=== PATIENT | female | born 1990 | race Caucasian/White ===

== ENCOUNTER 2017-10-26 12:40 | Emergency (ER) | payer OTHER | END 2017-10-26 16:05 | disposition home or self-care (01) | LOC: M ED 12:40 | DX: G43.909 Migraine, unspecified, not intractable, without status migrainosus (principal); Z87.820 Personal history of traumatic brain injury; M54.9 Dorsalgia, unspecified | CPT/HCPCS: 70450 ==

== ENCOUNTER 2018-04-24 12:13 | Emergency (ER) | payer OTHER ==
[2018-04-24 14:07] LABS: BASO # 0.1 10^3/uL (0.0-0.2); BASO % 0.5 % (0.0-1.0); EOS # 0.1 10^3/uL (0.0-0.50); EOS % 1.1 % (0.0-3.0); HEMATOCRIT 38.8 % (36.0-47.0); HEMOGLOBIN 12.6 g/dl (12.0-15.5); LYMPH # 3.1 10^3/uL (1.5-6.5); LYMPH % 24.2 % (24.0-44.0); MEAN CORPUSCULAR HEMOGLOBIN 28.1 pg (27.0-33.0); MEAN CORPUSCULAR HGB CONC 32.5 g/dl (32.0-36.5); MEAN CORPUSCULAR VOLUME 86.4 fl (80.0-96.0); MONO # 1.3 10^3/uL (0.0-0.8); MONO % 9.9 % (0.0-5.0); NEUTROPHILS # 8.1 10^3/uL (1.8-7.7); NEUTROPHILS % 63.3 % (36.0-66.0); PLATELET COUNT, AUTOMATED 303 10^3/uL (150-450); RED BLOOD COUNT 4.49 10^6/uL (4.00-5.40); RED CELL DISTRIBUTION WIDTH 12.4 % (11.5-14.5); WHITE BLOOD COUNT 12.7 10^3/uL (4.0-10.0)
[2018-04-24 14:35] LABS: ANION GAP 10 MEQ/L (8-16); BLOOD UREA NITROGEN 11 MG/DL (7-18); CALCIUM LEVEL 8.7 MG/DL (8.5-10.1); CARBON DIOXIDE LEVEL 24 MEQ/L (21-32); CHLORIDE LEVEL 109 MEQ/L (98-107); GLOMERULAR FILTRATION RATE > 60.0 (>60); GLUCOSE, FASTING 70 MG/DL (70-100); POTASSIUM SERUM 3.9 MEQ/L (3.5-5.1); SODIUM LEVEL 143 MEQ/L (136-145)
[2018-04-24] MEDS: ACETAMINOPHEN 325 MG TAB PO (16:41)
[2018-04-24] MEDS: NS 1,000 ML IV (16:41)
[2018-04-24] MEDS ORDERED: LISINOPRIL 10 MG TAB PO (16:45)
[2018-04-24 16:52] LABS: D-DIMER QUANT < 270.0 ng/ml (<500)
[2018-04-24 17:36] LABS: CK-MB VALUE MASS 1.6 NG/ML (<3.6); CPK CREATINE PHOSPHOKINASE 153 U/L (26-192); MB/CK RELATIVE INDEX 1.04 (< OR =4); TROPONIN I < 0.02 NG/ML (< 0.10)
== END 2018-04-24 18:01 | disposition home or self-care (01) ==
LOC: M ED 12:13
DX: G44.209 Tension-type headache, unspecified, not intractable (principal)
CPT/HCPCS: 71046

== ENCOUNTER → 2018-05-02 | Outpatient (CLI) | payer OTHER ==
[2018-05-02 16:36] LABS: ANION GAP 11 MEQ/L (8-16); BLOOD UREA NITROGEN 13 MG/DL (7-18); CALCIUM LEVEL 8.9 MG/DL (8.5-10.1); CARBON DIOXIDE LEVEL 27 MEQ/L (21-32); CHLORIDE LEVEL 101 MEQ/L (98-107); CREATININE FOR GFR 0.66 MG/DL (0.55-1.30); GLOMERULAR FILTRATION RATE > 60.0 (>60); GLUCOSE, FASTING 85 MG/DL (70-100); PHOSPHORUS LEVEL 3.6 MG/DL (2.5-4.9); SODIUM LEVEL 139 MEQ/L (136-145)
[2018-05-02 16:40] LABS: MAU/CREAT RATIO 11.8 MCG/MG (0.0-30.0)
[2018-05-07 00:07] LABS: CORTISOL SALIVARY 0.021 ug/dL (.)
[2018-05-08 00:06] LABS: RENIN ACTIVITY 16.048 ng/mL/hr (0.167-5.380)
== END ==
LOC: M LAB 15:33
DX: I10 Essential (primary) hypertension (principal)
CPT/HCPCS: 84244

== ENCOUNTER → 2018-05-03 | Outpatient (REF) | payer OTHER ==
[2018-05-03 12:34] LABS: ALBUMIN 3.8 GM/DL (3.2-5.2); ALBUMIN/GLOBULIN RATIO 0.97 (1.00-1.93); ALKALINE PHOSPHATASE 101 U/L (45-117); ALT/SGPT 24 U/L (12-78); ANION GAP 12 MEQ/L (8-16); AST/SGOT 13 U/L (7-37); BILIRUBIN,TOTAL 0.8 MG/DL (0.2-1.0); BLOOD UREA NITROGEN 15 MG/DL (7-18); CALCIUM LEVEL 8.8 MG/DL (8.5-10.1); CARBON DIOXIDE LEVEL 26 MEQ/L (21-32); CHLORIDE LEVEL 103 MEQ/L (98-107); CHOLESTEROL LEVEL 189 MG/DL (<200); CHOLESTEROL RISK RATIO 3.937 (<5); CREATININE FOR GFR 0.68 MG/DL (0.55-1.30); GLOMERULAR FILTRATION RATE > 60.0 (>60); GLUCOSE, FASTING 79 MG/DL (70-100); HDL CHOLESTEROL 48 MG/DL (>40); LDL CHOLESTEROL 115.4 MG/DL (<100); NON-HDL-C 141 MG/DL; POTASSIUM SERUM 3.5 MEQ/L (3.5-5.1); SODIUM LEVEL 141 MEQ/L (136-145); TOTAL PROTEIN 7.7 GM/DL (6.4-8.2); TRIGLYCERIDES LEVEL 128 MG/DL (<150)
== END ==
LOC: M SFHCPLAZ 08:25
DX: I10 Essential (primary) hypertension (principal); Z68.43 Body mass index [BMI] 50.0-59.9, adult
CPT/HCPCS: 84443

== ENCOUNTER → 2018-05-11 | Outpatient (CLI) | payer OTHER | LOC: M RAD 08:56 | DX: I10 Essential (primary) hypertension (principal) | CPT/HCPCS: 76775 ==

== ENCOUNTER → 2019-06-07 | Outpatient (CLI) | payer OTHER ==
[~2019-06-07] MED LIST: ACE65ERTAB PO; CEFD1CAP8 PO; TIZA4CAP PO
--- NOTE | 2019-06-07 13:40 | REP ---
MRI LUMBAR SPINE WITHOUT CONTRAST: HISTORY: Rule out stenosis. Spondylolisthesis in the lumbar region. Worsening low back pain. Weakness bilateral legs spasm. History of foot drop in 2015. Comparison is made with images from CT study of the abdomen dated May 11, 2016. Lumbar spine radiographs are reviewed from September 25, 2015. FINDINGS: Lumbar vertebral body heights are preserved. There is bilateral L5 spondylolysis and a 8 mm gradient 1-2 L5-S1 spondylolisthesis is present. There are degenerative disc changes and there is advanced reactive marrow edema on both sides the L5-S1 disc. The spondylolisthesis is more pronounced than it was on the CT study from May 11, 2016. The degenerative disc changes are more pronounced than on the radiographs or CT. There is diffuse disc bulging. There is bilateral neural foraminal narrowing from bulging of the foraminal segments of the disc. There is some perineural soft tissue edema bilaterally as well in addition to intraosseous edema. There is some T2 hyperintensity within the L5-S1 disc but the endplates are distinct an intact. There is mild facet hypertrophy bilaterally. At L4-5, there is a central focal disc protrusion effacing the ventral epidural fat but not compressing the thecal sac. There is mild facet hypertrophy. No foraminal narrowing or central canal stenosis is noted. At L3-4, posterior disc margin is normal. No abnormalities noted at L2-3 or at L1-2. There is mild disc bulging and disc space narrowing at T12-L1. The tip of the conus medullaris is normal in position and appearance at T12. IMPRESSION: Grade 1-2, 8 mm, L5-S1 spondylolisthesis associated with bilateral pars defects. This appears to have progressed since the CT study from May 11, 2016. There is associated edema. Bilateral foraminal narrowing is present at this level. There are degenerative disc changes at L4-5 with a small central disc protrusion. No thecal sac compression at L4-5. Electronically Signed by Jeff Shields MD 06/07/2019 01:44 P
== END ==
LOC: M RAD 10:54
PROVIDERS: ATTEND Physician Assistant
DX: M43.16 Spondylolisthesis, lumbar region (principal); M51.26 Other intervertebral disc displacement, lumbar region

== ENCOUNTER → 2019-08-22 | Outpatient (CLI) | payer OTHER ==
[2019-08-22 15:28] LABS: HEMATOCRIT 43.7 % (36.0-47.0); MEAN CORPUSCULAR HEMOGLOBIN 28.2 pg (27.0-33.0); MEAN CORPUSCULAR VOLUME 88.1 fl (80.0-96.0); PLATELET COUNT, AUTOMATED 380 10^3/uL (150-450); RED BLOOD COUNT 4.96 10^6/uL (4.00-5.40); WHITE BLOOD COUNT 18.2 10^3/uL (4.0-10.0)
[2019-08-22 15:58] LABS: BLOOD UREA NITROGEN 14 MG/DL (7-18); CALCIUM LEVEL 9.3 MG/DL (8.5-10.1); CARBON DIOXIDE LEVEL 28 MEQ/L (21-32); CHLORIDE LEVEL 105 MEQ/L (98-107); CREATININE FOR GFR 0.69 MG/DL (0.55-1.30); GLOMERULAR FILTRATION RATE > 60.0 (>60); GLUCOSE, FASTING 101 MG/DL (70-100); POTASSIUM SERUM 3.9 MEQ/L (3.5-5.1); SODIUM LEVEL 140 MEQ/L (136-145)
== END ==
LOC: M LAB 14:48
PROVIDERS: ATTEND Physician Assistant
DX: I10 Essential (primary) hypertension (principal)

== ENCOUNTER → 2019-11-03 | Outpatient (CLI) | payer OTHER ==
--- NOTE | 2019-11-11 03:45 | ECWPNPC ---
PATIENT NAME: BELÉN ROMERO : 1990 GENDER: FEMALE VISIT DATE: 11/03/2019 DISCHARGE DATE: 11/03/19 1208 VISIT LOCKED DATE TIME: PHYSICIAN: ALICE CUADRA MD RESOURCE: ALICE CUADRA MD REASON FOR APPOINTMENT 1. BACK PAIN HISTORY OF PRESENT ILLNESS HISTORY OF PRESENT ILLNESS: PAIN THE PATIENT DESCRIBES THE PAIN... 29 YEAR OLD FEMALE PATIENT WITH A HISTORY OF CHRONIC LOW BACK PAIN. THE PATIENT DESCRIBES THE PAIN SHARP AND INTERMITTENT WITH A PAIN SCORE OF 1-10/10 DEPENDING ON PHYSICAL ACTIVITY. THE PATIENT STATES SHE HAS BEEN SUFFERING FROM HER LOW BACK PAIN INTERMITTENTLY FOR MANY YEARS, BUT SINCE LAST HER PAIN HAS BEGAN AGAIN. THE PATIENT SAYS HER PAIN BEGINS IN HER LOW BACK AND RADIATES DOWN TO HER HIPS. THE PATIENT STATES SHE HAS A HISTORY OF A FOOT DROP THAT OCCURRED IN 2014 AND RESPONDED WELL TO INJECTION THERAPY. PATIENT DENIES UNEXPLAINABLE WEIGHT LOSS, FEVER, CHILLS, NEW CHANGES ON HER URINARY OR BOWEL CONTROL. FALL RISK SCREENING: SCREENING :NO FALLS REPORTED IN THE LAST YEAR CURRENT MEDICATIONS TAKING TIZANIDINE HCL 4 MG TABLET 1 TABLET NEEDED ORALLY EVERY 8 HRS, NOTES: NONE LATELY TAKING TYLENOL ARTHRITIS PAIN _ 2 TABLETS ORALLY DAILY NEEDED TAKING IBU-200 200 MG TABLET 1 TABLET WITH FOOD OR MILK NEEDED ORALLY THREE TIMES A DAY TAKING ZYRTEC ALLERGY 10 MG CAPSULE 1 CAPSULE ORALLY ONCE A DAY TAKING VENTOLIN HFA 108 (90 BASE) MCG/ACT AEROSOL SOLUTION 2 PUFFS NEEDED INHALATION EVERY 6 HRS TAKING METOPROLOL SUCCINATE 50 MG TABLET EXTENDED RELEASE 1 TAB ORALLY DAILY TAKING LOSARTAN POTASSIUM 100 MG TABLET 1 TABLET ORALLY ONCE A DAY MEDICATION LIST REVIEWED AND RECONCILED WITH THE PATIENT PAST MEDICAL HISTORY SACRAL DISC HERNIATION - BACK PAIN KIDNEY STONE HEADACHES ENVIRONMENTAL ALLERGIES -PRIOR ALLERGY SHOTS ASTHMA HX OF DEPRESSION A TEEN OBESITY ESSENTIAL HTN ALLERGIES N.K.D.A. SURGICAL HISTORY RIGHT KNEE SURGERY 1999 EPIDERAL INJECTIONS X 3 2015 & 2018 FAMILY HISTORY FATHER: ALIVE 58 YRS, [place] AT 52, KIDNEY STONE, ALCOHOLISM, HTN, PROSTATE CANCER, DIAGNOSED WITH HYPERTENSION, UNSPECIFIED HEART DISEASE, OTHER MALIGNANT NEOPLASM OF UNSPECIFIED SITE MOTHER: ALIVE 55 YRS, S/P GASTRIC BYPASS, THYROID DISEASE (PRE-CANCEROUS), MITRAL VALVE RE-GURG, ASTHMA, HYPERTENSION SIBLINGS: ALIVE, MIGRAINES, KIDNEY STONE PATERNAL GRAND FATHER: , PROSTATE CANCER, MIGRAINES PATERNAL GRAND MOTHER: , DM, KIDNEY DISEASE, DIABETES MATERNAL GRAND FATHER: ALIVE 75 YRS, THYROID DISEASE, HTN, HYPERTENSION MATERNAL GRAND MOTHER: ALIVE 75 YRS, HEMOCHROMATOSIS, HTN, CABG - IN 40'S, KIDNEY DISEASE 1 SISTER(S) - HEALTHY. SISTER - SEVERE MIGRAINES, KIDNEY STONES. SOCIAL HISTORY GENERAL: TOBACCO USE ARE YOU A:NONSMOKER HIV / HEP-C SCREENING HIV TEST OFFERED TO PATIENT:YES DATE OFFERED:04/27/2018 TEST ACCEPTED:NO HEP-C TEST OFFERED TO PATIENT:NO N/A REASON:PATIENT DECLINED BROCHURE PROVIDED TO PATIENTYES EDUCATION LEVEL OF EDUCATION:FINISHED COLLEGE AD DIET: REGULAR, REDUCED SALT. LANGUAGE LANGUAGES SPOKEN:MEXICAN DOMESTIC VIOLENCE NONE. BMI CARE GOAL FOLLOW-UP ABOVE NORMAL BMI FOLLOW-UPGIVING ENCOURAGEMENT TO EXERCISE RECREATIONAL DRUG USE DRUG USE?NO EXERCISE: NO REGULAR EXERCISE. LEARNING BARRIERS / SPECIAL NEEDS CHANGE FROM LAST VISIT?NO BARRIERS TO LEARNING?NO HEARING IMPAIRED?NO VISION IMPAIRED?YES :CORRECTIVE LENSES COGNITIVELY IMPAIRED?NO READINESS TO LEARN?YES LEARNING PREFERENCES?NO LEARNING CAPABILITIES PRESENT?YES EMOTIONAL BARRIERS?NO SPECIAL DEVICES?NO MANAGER CREDIT RISK NEEDED?NO PAIN CLINIC PFS, CLERGY, PUBLIC HEALTH REFERRALS HAS THE PATIENT BEEN EDUCATED REGARDING HIS/HER PLAN OF CARE?YES HAS THE PATIENT BEEN EDUCATED REGARDING PAIN, THE RISK FOR PAIN, THE IMPORTANCE OF EFFECTIVE PAIN MANAGEMENT, AND THE PAIN ASSESSMENT PROCESS?YES LATEX QUESTIONNAIRE LATEX ALLERGY : HAVE YOU EVER DEVELOPED ANY TYPE OF REACTION AFTER HANDLING LATEX PRODUCTS SUCH RUBBER GLOVES, CONDOMS, DIAPHRAGMS, BALLOONS, SOCKS, OR UNDERWEAR?NO LATEX ALLERGY : HAVE YOU EVER DEVELOPED ANY TYPE OF REACTION DURING OR AFTER DENTAL APPOINTMENT, VAGINAL/RECTAL EXAMINATION, SURGICAL PROCEDURE, OR ANY OTHER EXPOSURE?NO LATEX RISK : HAVE YOU EVER HAD ANY DIFFICULTY BREATHING OR HIVES AFTER EATING OR HANDLING ANY FRUITS, OR VEGETABLES; SUCH KIWI, BANANAS, STONE FRUITS, OR CHESTNUTSNO LATEX RISK : DO YOU HAVE A PREVIOUS PERSONAL HISTORY OF MORE THAN NINE SURGERIES, SPINA BIFIDA, OR REPEATED CATHERIZATIONS? NO LATEX RISK : ARE YOU FREQUENTLY EXPOSED TO LATEX PRODUCTS IN YOUR OCCUPATION?YES DATE ASKED : 11/02/2019 CAFFEINE CAFFEINE USE?YES SODA 2-3 CANS A DAY ADVANCE DIRECTIVE ADVANCE DIRECTIVE DISCUSSED WITH PATIENT:YES 11/02/2019 PATIENT HAS NO ADVANCED DIRECTIVES AND DECLINES INFORMATION ON HCP AT THIS TIME. DAYA NONDENOMINATIONAL [id number] NONE MARITAL STATUS: SINGLE. ALCOHOL SCREENING DID YOU HAVE A DRINK CONTAINING ALCOHOL IN THE PAST YEAR?NO POINTS0 INTERPRETATIONNEGATIVE OCCUPATION: UNEMPLOYED. SEXUAL HX HAD SEX IN THE LAST 12 MONTHS (VAGINAL, ORAL, OR ANAL)?NO LMP:04/06/2018 HAVE YOU EVER HAD AN STD?NO PRE-SCREENING COMPLETED 11/02/2019 1257 JS. HOSPITALIZATION/MAJOR DIAGNOSTIC PROCEDURE [facility] X4 FOR DEPRESSION/DIVORCE OF PARENTS 1997 - 2002 REVIEW OF SYSTEMS REVIEWED BY: PROVIDER: ALICE CUADRA MD . CONSTITUTIONAL: ANY CHANGE IN YOUR MEDICAL CONDITION? NO . CHILLS NO . FEVER NO . INFECTION: DO YOU HAVE NEW INFECTIONS? NO . DO YOU HAVE HISTORY OF MRSA? NO . MUSCULOSKELETAL: ANY NEW PATTERNS OF PAIN OR NUMBNESS? NO . GASTROENTEROLOGY: ANY NEW CHANGE IN BOWEL CONTROL? NO . GENITOURINARY: ANY NEW CHANGE IN BLADDER CONTROL? NO . IS THERE A CHANCE YOU COULD BE ? NO . HEMATOLOGY/LYMPH: DO YOU TAKE ANY BLOOD THINNERS? (FOR EXAMPLE- COUMADIN, PLAVIX, AGGRENOX, PLATEL, PRADAXA, OR XARELTO) NO . WHEN WAS YOUR LAST DOSE? DATE: TIME: . NEUROLOGY: HAVE YOU FALLEN IN THE PAST 12 MONTHS? YES, FELL 3 DAYS AGO PICKING UP TREE BRANCH AND DOG JUMPED ON HER KNOCKING HER OVER, PT INJURED LOWER BACK PT USED TYLENOL AND ICE PACK WITH RELIEF AFTER A FEW DAYS . ANY NEW EXTREMITY NUMBNESS OR WEAKNESS? NO . CARDIOLOGY: DO YOU HAVE A PACEMAKER OR DEFIBRILLATOR? NO . RESPIRATORY: HAVE YOU BEEN SICK IN THE PAST WEEK? NO . FEVER NO . FLU LIKE SYMPTOMS? NO . COUGH NO . INTEGUMENTARY: DO YOU HAVE ANY RASHES OR OPEN SORES? NO . ALLERGIC/IMMUNO: ARE YOU ALLERGIC TO IV DYE? NO . ANY NEW ALLERGIES? NO . PSYCHIATRIC: DO YOU HAVE THOUGHTS OF HURTING YOURSELF OR SOMEONE ELSE? NO . ARE YOU ABUSED, NEGLECTED, OR IN AN UNSAFE ENVIRONMENT? NO . ENDOCRINOLOGY: ARE YOU DIABETIC? NO . OTHER: DO YOU NEED ANY PRESCRIPTIONS? NO . IF YES, PLEASE LIST: ____ . ANY NEW PROBLEMS WITH YOUR MEDICATIONS? NO . WHEN DID YOU LAST EAT? ____ . WHEN DID YOU LAST DRINK? ____ . WHAT DID YOU LAST DRINK? ____ . NAME OF PERSON DRIVING YOU HOME? ____ . DO YOU HAVE ANY OTHER QUESTIONS OR CONCERNS NO . VITAL SIGNS WT 320 LBS, HT 5'2", BMI 58.52 INDEX, BP 154/80 MM HG, HR 76 /MIN, RR 16 /MIN, TEMP 98.2 F, OXYGEN SAT % 100, REVIEWED BY: EM. EXAMINATION GENERAL EXAMINATION: PATIENT IS ALERT O X 3 AND COOPERATIVE. LUNGS CLEAR, TO AUSCULTATION. HEART: NO MURMURS OR GALLOPS; FACIAL CRANIAL NERVES ARE GROSSLY NORMAL. GOOD SYMMETRY OF FACIAL MUSCLE MOVEMENT. NORMAL VISUAL GUIDO. PAIN INCREASES OVER THE LUMBAR FACET JOINTS WITH EXTENSION AND LATERAL ROTATION OF THE BACK. PATIENT CAN FLEX FORWARD AND EXTEND BACKWARD WITH SOME LEVEL OF DISCOMFORT. NO PAIN DOWN BOTH LEGS. RIGHT LEG IS WEAKER AT EXTENSION AND FLEXION. SENSATION IS GROSSLY NORMAL ALONG BOTH LEGS. MRI OF THE LUMBAR SPINE DONE ON 06/07/2019 SHOWS L5-S1 SPONDYLOLISTHESIS THAT HAS PROGRESSED SINCE LAST CT DONE ON 05/09/2016, AND ALSO EDEMA OVER THE AREA. ASSESSMENTS SPONDYLOSIS WITHOUT MYELOPATHY OR RADICULOPATHY, LUMBAR REGION - M47.816 (PRIMARY) TREATMENT SPONDYLOSIS WITHOUT MYELOPATHY OR RADICULOPATHY, LUMBAR REGION CLINICAL NOTES: WE DISCUSSED SEVERAL ISSUES WITH MS. ROMERO'S PAIN MANAGEMENT CASE. I DISCUSSED WITH THE RADIOLOGIST, DR. ALLAN, REGARDING THE EDEMA THAT WAS FOUND FROM THE PATIENT'S LAST LUMBAR MRI DONE ON 06/07/2019. I WAS INFORMED BY DR. ALLAN THAT THE EDEMA REPRESENTS DEGENERATION. DUE TO THE LUMBAR SPONDYLOSIS, I WOULD LIKE TO MOVE FORWARD WITH A DIAGNOSTIC LUMBAR FACET BLOCK TO CONSIDER RADIOFREQUENCY. WE DISCUSSED THE BENEFITS, RISKS, AND ALTERNATIVES OF THE PROCEDURE AND THE PATIENT WOULD LIKE TO PROCEED. THE PATIENT WILL FOLLOW UP IN SEVERAL WEEKS AFTER HER INJECTION TO SEE HOW IT IS HELPING WITH HER PAIN. INSTRUCTIONS WERE GIVEN, QUESTIONS WERE ANSWERED, PATIENT REPORTS UNDERSTANDING AND AGREES WITH THE PLAN. I, CHRISS THOMAS, DOCUMENTED THE ABOVE INFORMATION ACTING A SCRIBE FOR DR. CUADRA. I HAVE REVIEWED THE ABOVE DOCUMENT, WRITTEN BY CHRISS THOMAS SCRIBRosie AND I VERIFY THAT IT IS ACCURATE. DEAR ABHILASH VALLEJO: THANK YOU FOR YOUR KIND REFERRAL OF BELÉN ORMERO. IF YOU WANT TO DISCUSS HER CASE WITH ME PLEASE CALL ME AT THE PAIN CENTER AT [phone]. SINCERELY, ALICE CUADRA MD PAIN MEDICINE . OTHERS NOTES: FACET JOINT INJECTION MATERIAL WAS PUBLISHED TO PORTAL,FACET JOINT INJECTION MATERIAL WAS PRINTED. PREVENTIVE MEDICINE PAIN CLINIC TEACHING: PROCEDURE TEACHING PRE PROCEDURE INSTRUCTIONS REVIEWED WITH PT. VERBALIZED UNDERSTANDING.. PROCEDURE CODES FA211 ESTABILISHED PATIENT [facility] FAC[facility] CHARGE [id number] CURRENT MEDS W/DOSAGES DOCUMENTED [id number] PAIN ASSESS POS TOOL F/U PLAN DOC DISPOSITION & COMMUNICATION FOLLOW UP REASON: LS DIAGNOSTIC FB JEM L4-L5, L5-S1 ELECTRONICALLY SIGNED BY ALICE CUADRA MD, MD ON 11/10/2019 AT 03:29 PM EST DISCLAIMER : THIS IS A VISIT SUMMARY EXTRACTED FROM THE [employer] CHART. IT IS NOT A COPY OF THE [employer] PROGRESS NOTE. MTDD
== END ==
LOC: M PAIN 09:30
PROVIDERS: ATTEND Anesthesiology
DX: M47.816 Spondylosis without myelopathy or radiculopathy, lumbar region (principal)

== ENCOUNTER → 2020-01-09 | Outpatient (CLI) | payer OTHER ==
--- NOTE | 2020-01-22 00:03 | ECWPNPC ---
PATIENT NAME: BELÉN ROMERO : 1990 GENDER: FEMALE VISIT DATE: 01/09/2020 DISCHARGE DATE: 01/09/20 1251 VISIT LOCKED DATE TIME: PHYSICIAN: ALICE CUADRA MD RESOURCE: ALICE CUADRA MD REASON FOR APPOINTMENT 1. PER DR Aldana HISTORY OF PRESENT ILLNESS HISTORY OF PRESENT ILLNESS: PAIN THE PATIENT DESCRIBES THE PAIN... PERMISSION FROM PATIENT WAS RECEIVED TO DO TELEPHONE OFFICE VISIT. 29-YEAR-OLD FEMALE PATIENT WITH A HISTORY OF CHRONIC LOW BACK PAIN AND FOOT DROP. THE PATIENT DESCRIBES THE PAIN SEVERE, ACHING, CONSTANT, SHARP, SHOOTING DOWN BOTH HIPS INTO BILATERAL LEGS WITH A PAIN SCORE RANGING FROM 3-7/10 DEPENDING ON PHYSICAL ACTIVITY. THE PATIENT STATES THAT THE PAIN IS MOSTLY IN THE LOWER BACK. THE PATIENT HAS BEEN USING TIZANIDINE AND IT IS HELPING WITH THE PAIN. PATIENT DENIES UNEXPLAINABLE WEIGHT LOSS, FEVER, CHILLS, NEW CHANGES ON HER URINARY OR BOWEL CONTROL. FALL RISK SCREENING: SCREENING :NO FALLS REPORTED IN THE LAST YEAR CURRENT MEDICATIONS TAKING TIZANIDINE HCL 4 MG TABLET 1 TABLET NEEDED ORALLY EVERY 8 HRS, NOTES: NONE LATELY TAKING TYLENOL ARTHRITIS PAIN _ 2 TABLETS ORALLY DAILY NEEDED TAKING IBU-200 200 MG TABLET 1 TABLET WITH FOOD OR MILK NEEDED ORALLY THREE TIMES A DAY, NOTES: HAS NOT BEEN USING TAKING ZYRTEC ALLERGY 10 MG CAPSULE 1 CAPSULE ORALLY ONCE A DAY TAKING METOPROLOL SUCCINATE 50 MG TABLET EXTENDED RELEASE 1 TAB ORALLY DAILY TAKING LOSARTAN POTASSIUM 100 MG TABLET 1 TABLET ORALLY ONCE A DAY TAKING VENTOLIN HFA 108 (90 BASE) MCG/ACT AEROSOL SOLUTION 2 PUFFS NEEDED INHALATION EVERY 6 HRS TAKING ICY HOT 7.5 % (ROLL) MISCELLANEOUS 1 APPLICATION NEEDED EXTERNALLY BID PRN OTC MEDICATION LIST REVIEWED AND RECONCILED WITH THE PATIENT PAST MEDICAL HISTORY SACRAL DISC HERNIATION - BACK PAIN KIDNEY STONE HEADACHES ENVIRONMENTAL ALLERGIES -PRIOR ALLERGY SHOTS ASTHMA HX OF DEPRESSION A TEEN OBESITY ESSENTIAL HTN ALLERGIES N.K.D.A. SURGICAL HISTORY RIGHT KNEE SURGERY 1999 EPIDERAL INJECTIONS X 3 2015 & 2019 FAMILY HISTORY FATHER: ALIVE 58 YRS, [place] AT 52, KIDNEY STONE, ALCOHOLISM, HTN, PROSTATE CANCER, DIAGNOSED WITH HYPERTENSION, UNSPECIFIED HEART DISEASE, OTHER MALIGNANT NEOPLASM OF UNSPECIFIED SITE MOTHER: ALIVE 55 YRS, S/P GASTRIC BYPASS, THYROID DISEASE (PRE-CANCEROUS), MITRAL VALVE RE-GURG, ASTHMA, HYPERTENSION SIBLINGS: ALIVE, MIGRAINES, KIDNEY STONE PATERNAL GRAND FATHER: , PROSTATE CANCER, MIGRAINES PATERNAL GRAND MOTHER: , DM, KIDNEY DISEASE, DIABETES MATERNAL GRAND FATHER: ALIVE 75 YRS, THYROID DISEASE, HTN, HYPERTENSION MATERNAL GRAND MOTHER: ALIVE 75 YRS, HEMOCHROMATOSIS, HTN, CABG - IN 40'S, KIDNEY DISEASE 1 SISTER(S) - HEALTHY. SISTER - SEVERE MIGRAINES, KIDNEY STONES. SOCIAL HISTORY GENERAL: TOBACCO USE ARE YOU A:NONSMOKER LATEX QUESTIONNAIRE LATEX ALLERGY : HAVE YOU EVER DEVELOPED ANY TYPE OF REACTION AFTER HANDLING LATEX PRODUCTS SUCH RUBBER GLOVES, CONDOMS, DIAPHRAGMS, BALLOONS, SOCKS, OR UNDERWEAR?NO LATEX ALLERGY : HAVE YOU EVER DEVELOPED ANY TYPE OF REACTION DURING OR AFTER DENTAL APPOINTMENT, VAGINAL/RECTAL EXAMINATION, SURGICAL PROCEDURE, OR ANY OTHER EXPOSURE?NO LATEX RISK : HAVE YOU EVER HAD ANY DIFFICULTY BREATHING OR HIVES AFTER EATING OR HANDLING ANY FRUITS, OR VEGETABLES; SUCH KIWI, BANANAS, STONE FRUITS, OR CHESTNUTSNO LATEX RISK : DO YOU HAVE A PREVIOUS PERSONAL HISTORY OF MORE THAN NINE SURGERIES, SPINA BIFIDA, OR REPEATED CATHERIZATIONS? NO LATEX RISK : ARE YOU FREQUENTLY EXPOSED TO LATEX PRODUCTS IN YOUR OCCUPATION?YES DATE ASKED : 01/09/2020 BMI CARE GOAL FOLLOW-UP ABOVE NORMAL BMI FOLLOW-UPGIVING ENCOURAGEMENT TO EXERCISE ALCOHOL SCREENING DID YOU HAVE A DRINK CONTAINING ALCOHOL IN THE PAST YEAR?NO POINTS0 INTERPRETATIONNEGATIVE RECREATIONAL DRUG USE DRUG USE?NO CAFFEINE CAFFEINE USE?YES SODA 2-3 CANS A DAY SEXUAL HX HAD SEX IN THE LAST 12 MONTHS (VAGINAL, ORAL, OR ANAL)?NO LMP:04/06/2018 HAVE YOU EVER HAD AN STD?NO HIV / HEP-C SCREENING HIV TEST OFFERED TO PATIENT:YES DATE OFFERED:04/27/2018 TEST ACCEPTED:NO HEP-C TEST OFFERED TO PATIENT:NO N/A REASON:PATIENT DECLINED BROCHURE PROVIDED TO PATIENTYES MORMONISM [id number] NONE LANGUAGE LANGUAGES SPOKEN:MONGOLIAN EDUCATION LEVEL OF EDUCATION:FINISHED COLLEGE AD LEARNING BARRIERS / SPECIAL NEEDS CHANGE FROM LAST VISIT?NO BARRIERS TO LEARNING?NO HEARING IMPAIRED?NO VISION IMPAIRED?YES COGNITIVELY IMPAIRED?NO :CORRECTIVE LENSES READINESS TO LEARN?YES LEARNING PREFERENCES?NO LEARNING CAPABILITIES PRESENT?YES EMOTIONAL BARRIERS?NO SPECIAL DEVICES?NO [employer] ARCHITECT NEEDED?NO DOMESTIC VIOLENCE NONE. OCCUPATION: UNEMPLOYED. DIET: REGULAR, REDUCED SALT. EXERCISE: NO REGULAR EXERCISE. MARITAL STATUS: SINGLE. NEW PATIENT PAIN DIARY TODAY'S VISITNOTES PATIENT DESCRIBES PAIN :HAVE IT ALL THE TIME, SHARP, SHOOTING BILATERAL HIPS HAVE SHARP PAIN SHOOTING PAINS DOWN BILATERAL LEGS FROM 0-10, WHAT LEVEL IS YOUR PAIN TODAY?7 PAIN CLINIC PFS, CLERGY, PUBLIC HEALTH REFERRALS HAS THE PATIENT BEEN EDUCATED REGARDING HIS/HER PLAN OF CARE?YES HAS THE PATIENT BEEN EDUCATED REGARDING PAIN, THE RISK FOR PAIN, THE IMPORTANCE OF EFFECTIVE PAIN MANAGEMENT, AND THE PAIN ASSESSMENT PROCESS?YES ADVANCE DIRECTIVE ADVANCE DIRECTIVE DISCUSSED WITH PATIENT:YES 11/02/2019 PATIENT HAS NO ADVANCED DIRECTIVES AND DECLINES INFORMATION ON HCP AT THIS TIME. JS PRE-SCREENING COMPLETED 11/02/2019 1257 JS. HOSPITALIZATION/MAJOR DIAGNOSTIC PROCEDURE [facility] X4 FOR DEPRESSION/DIVORCE OF PARENTS 1997 - 2002 REVIEW OF SYSTEMS REVIEWED BY: PROVIDER: ALICE CUADRA MD . CONSTITUTIONAL: ANY CHANGE IN YOUR MEDICAL CONDITION? NO . CHILLS NO . FEVER NO . INFECTION: DO YOU HAVE NEW INFECTIONS? NO . DO YOU HAVE HISTORY OF MRSA? NO . MUSCULOSKELETAL: ANY NEW PATTERNS OF PAIN OR NUMBNESS? YES- PAIN IN HIPS IS GETTING WORSE, STATES SHE NOW HAS SHOOTING PAINS AND NUMBNESS IN BILATERAL CALF AREA IN THE LAST 2 WEEKS . GASTROENTEROLOGY: ANY NEW CHANGE IN BOWEL CONTROL? NO . GENITOURINARY: ANY NEW CHANGE IN BLADDER CONTROL? NO . IS THERE A CHANCE YOU COULD BE ? NO . HEMATOLOGY/LYMPH: DO YOU TAKE ANY BLOOD THINNERS? (FOR EXAMPLE- COUMADIN, PLAVIX, AGGRENOX, PLATEL, PRADAXA, OR XARELTO) NO . WHEN WAS YOUR LAST DOSE? DATE: TIME: . NEUROLOGY: HAVE YOU FALLEN IN THE PAST 12 MONTHS? NO . ANY NEW EXTREMITY NUMBNESS OR WEAKNESS? YES- STATES SHE HAS BEEN HAVING NUMBNESS IN BILATERAL CALF AREA FOR THE LAST 2 WEEKS . CARDIOLOGY: DO YOU HAVE A PACEMAKER OR DEFIBRILLATOR? NO . RESPIRATORY: HAVE YOU BEEN SICK IN THE PAST WEEK? NO . FEVER NO . FLU LIKE SYMPTOMS? NO . COUGH NO . INTEGUMENTARY: DO YOU HAVE ANY RASHES OR OPEN SORES? NO . ALLERGIC/IMMUNO: ARE YOU ALLERGIC TO IV DYE? NO . ANY NEW ALLERGIES? NO . PSYCHIATRIC: DO YOU HAVE THOUGHTS OF HURTING YOURSELF OR SOMEONE ELSE? NO . ARE YOU ABUSED, NEGLECTED, OR IN AN UNSAFE ENVIRONMENT? NO . ENDOCRINOLOGY: ARE YOU DIABETIC? NO . OTHER: DO YOU NEED ANY PRESCRIPTIONS? YES . IF YES, PLEASE LIST: TIZANIDINE . ANY NEW PROBLEMS WITH YOUR MEDICATIONS? NO . WHEN DID YOU LAST EAT? ____ . WHEN DID YOU LAST DRINK? ____ . WHAT DID YOU LAST DRINK? ____ . NAME OF PERSON DRIVING YOU HOME? ____ . DO YOU HAVE ANY OTHER QUESTIONS OR CONCERNS STATES SHE HAS BEEEN HAVING INCREASED PAIN IN BIALTERAL HIP POOJA, ALS STATES SHE HAS BEEN HAVING SHOOTING PAINS DOWN BILATERAL CALF AREA WITH NUMBNESS FOR THE LAST 2 WEEKS . EXAMINATION GENERAL EXAMINATION: TELEPHONE VISIT. THE PATIENT SEEMS ALERT, ORIENTED TIMES 3 AND COOPERATIVE. MRI OF THE LUMBAR SPINE DATED 06/07/2019 SHOWS FACET ARTHROPATHY CHANGES. ASSESSMENTS SPONDYLOSIS WITHOUT MYELOPATHY OR RADICULOPATHY, LUMBAR REGION - M47.816 (PRIMARY) TREATMENT SPONDYLOSIS WITHOUT MYELOPATHY OR RADICULOPATHY, LUMBAR REGION CLINICAL NOTES: WE DISCUSSED SEVERAL ISSUES WITH MS. ROMERO'S PAIN MANAGEMENT CASE. THE PATIENT HAS USED GABAPENTIN APPROXIMATELY 2 YEARS AGO WHICH PATIENT STATES HELPED. I AM GOING TO HAVE THE PATIENT START TAKING GABAPENTIN 100 MG 1 TABLET AT NIGHT FOR A WEEK. I WILL ALSO REFILL THE PATIENT'S TIZANIDINE 4 MG P.R.N. MAXIMUM OF 2 TABLETS A DAY. THE PATIENT KNOWS TO STOP TAKING THE MEDICATION IMMEDIATELY AND CALL THE OFFICE IF THERE ARE ANY PROBLEMS. THE PATIENT REPORTS SIGNIFICANT PAIN, SO I WILL HAVE HER FOLLOWUP WITH ME IN 1 WEEK VIA TELEMEDICINE TO SEE HOW SHE IS DOING. SHE AGREED ON HOLDING PROCEDURES FOR NOW .THE PATIENT UNDERSTANDS AND IS IN AGREEMENT WITH THE TREATMENT PLAN. THE TOTAL TIME FOR THE TELEPHONE VISIT WAS 11 MINUTES. I, SHANTHI BARRETT , DOCUMENTED THE ABOVE INFORMATION ACTING A SCRIBE FOR DR. CUADRA. I HAVE REVIEWED THE ABOVE DOCUMENT, WRITTEN BY TOMÁS SCOTT, AND I VERIFY THAT IT IS ACCURATE . OTHERS CONTINUE TIZANIDINE HCL TABLET, 4 MG, 1 TABLET NEEDED, ORALLY FOR SPASMS AND PAIN, EVERY 8 HRS MDD 2, 30 DAYS, 60, REFILLS 0, NOTES: NONE LATELY START GABAPENTIN CAPSULE, 100 MG, 1 CAPSULE, ORALLY, THREE TIMES DAILY MDD3, 30 DAY(S), 90, REFILLS 0 NOTES: TELEPHONE VISIT OKAYED WITH PT BY THIS SETTER [employer]ACH[employer]. 01/09/2020 1046 NLJVITAL SIGNS UNABLE TO BE TAKEN DUE TO TELEPHONE VISIT 01/09/2020 1046 NLJ. DISPOSITION & COMMUNICATION FOLLOW UP 1 WEEK (REASON: F/UP DR. CUADRA NEXT WEEK TELEPHONE VISIT) ELECTRONICALLY SIGNED BY ALICE CUADRA MD, ON 01/21/2020 AT 04:21 PM EDT DISCLAIMER : THIS IS A VISIT SUMMARY EXTRACTED FROM THE [employer] CHART. IT IS NOT A COPY OF THE [employer] PROGRESS NOTE. SIGRID
== END ==
LOC: M PAIN 10:30
PROVIDERS: ATTEND Anesthesiology
DX: M47.816 Spondylosis without myelopathy or radiculopathy, lumbar region (principal); G89.29 Other chronic pain; J45.909 Unspecified asthma, uncomplicated; Z86.59 Personal history of other mental and behavioral disorders; I10 Essential (primary) hypertension; Z79.899 Other long term (current) drug therapy

== ENCOUNTER → 2020-01-18 | Outpatient (CLI) | payer OTHER ==
--- NOTE | 2020-01-24 01:49 | ECWPNPC ---
PATIENT NAME: BELÉN ROMERO : 1990 GENDER: FEMALE VISIT DATE: 01/18/2020 DISCHARGE DATE: 01/18/20 1506 VISIT LOCKED DATE TIME: PHYSICIAN: ALICE CUADRA MD RESOURCE: ALICE CUADRA MD REASON FOR APPOINTMENT 1. [address] Aldana HISTORY OF PRESENT ILLNESS HISTORY OF PRESENT ILLNESS: PAIN THE PATIENT DESCRIBES THE PAIN... PERMISSION FROM PATIENT WAS RECEIVED TO DO TELEPHONE OFFICE VISIT. 29 YEAR OLD FEMALE PATIENT WITH A HISTORY OF CHRONIC LOW BACK PAIN. THE PATIENT DESCRIBES HER PAIN HAVE IT ALL THE TIME, SHARP, SHOOTING WITH A PAIN SCORE OF 2-6/10 DEPENDING ON PHYSICAL ACTIVITY. THE PATIENT STATES HER PAIN BEGINS IN HER LOW BACK AND RADIATES DOWN BOTH HIPS AND LEGS WITH NUMBNESS WELL. THE PATIENT WAS STARTED ON TIZANIDINE 4 MG ONCE DAILY AND ONE TABLET AT NIGHT OF GABAPENTIN 100 MG. THE PATIENT IS AWARE SHE IS ABLE TO USE TWO TABLETS OF TIZANIDINE NEEDED FOR HER PAIN. THE PATIENT REPORTS SHE IS DOING BETTER WITH HER CURRENT MEDICATION, BUT SHE IS STILL EXPERIENCING SLEEP DIFFICULTY AND PAIN FROM STANDING UP. THE PATIENT DENIES UNEXPLAINED WEIGHT LOSS, FEVER, CHILLS, NEW CHANGES IN HER URINARY OR BOWEL CONTROL. FALL RISK SCREENING: SCREENING :NO FALLS REPORTED IN THE LAST YEAR CURRENT MEDICATIONS TAKING TYLENOL ARTHRITIS PAIN _ 2 TABLETS ORALLY DAILY NEEDED, NOTES: 01/17 6AM TAKING IBU-200 200 MG TABLET 1 TABLET WITH FOOD OR MILK NEEDED ORALLY THREE TIMES A DAY, NOTES: HAS NOT BEEN USING TAKING ZYRTEC ALLERGY 10 MG CAPSULE 1 CAPSULE ORALLY ONCE A DAY, NOTES: 01/16 5PM TAKING METOPROLOL SUCCINATE 50 MG TABLET EXTENDED RELEASE 1 TAB ORALLY DAILY, NOTES: 01/17 6AM TAKING LOSARTAN POTASSIUM 100 MG TABLET 1 TABLET ORALLY ONCE A DAY, NOTES: 01/16 5PM TAKING VENTOLIN HFA 108 (90 BASE) MCG/ACT AEROSOL SOLUTION 2 PUFFS NEEDED INHALATION EVERY 6 HRS, NOTES: 01/15 TAKING ICY HOT 7.5 % (ROLL) MISCELLANEOUS 1 APPLICATION NEEDED EXTERNALLY BID PRN OTC, NOTES: USING AT INTERVALS TAKING TIZANIDINE HCL 4 MG TABLET 1 TABLET NEEDED ORALLY FOR SPASMS AND PAIN EVERY 8 HRS MDD 2, NOTES: 01/16 9PM TAKING GABAPENTIN 100 MG CAPSULE 1 CAPSULE ORALLY THREE TIMES DAILY MDD3, NOTES: 01/16 10PM MEDICATION LIST REVIEWED AND RECONCILED WITH THE PATIENT PAST MEDICAL HISTORY SACRAL DISC HERNIATION - BACK PAIN KIDNEY STONE HEADACHES ENVIRONMENTAL ALLERGIES -PRIOR ALLERGY SHOTS ASTHMA HX OF DEPRESSION A TEEN OBESITY ESSENTIAL HTN ALLERGIES N.K.D.A. SURGICAL HISTORY RIGHT KNEE SURGERY 1999 EPIDERAL INJECTIONS X 3 2015 & 2019 FAMILY HISTORY FATHER: ALIVE 58 YRS, [place] AT 52, KIDNEY STONE, ALCOHOLISM, HTN, PROSTATE CANCER, DIAGNOSED WITH HYPERTENSION, UNSPECIFIED HEART DISEASE, OTHER MALIGNANT NEOPLASM OF UNSPECIFIED SITE MOTHER: ALIVE 55 YRS, S/P GASTRIC BYPASS, THYROID DISEASE (PRE-CANCEROUS), MITRAL VALVE RE-GURG, ASTHMA, HYPERTENSION SIBLINGS: ALIVE, MIGRAINES, KIDNEY STONE PATERNAL GRAND FATHER: , PROSTATE CANCER, MIGRAINES PATERNAL GRAND MOTHER: , DM, KIDNEY DISEASE, DIABETES MATERNAL GRAND FATHER: ALIVE 75 YRS, THYROID DISEASE, HTN, HYPERTENSION MATERNAL GRAND MOTHER: ALIVE 75 YRS, HEMOCHROMATOSIS, HTN, CABG - IN 40'S, KIDNEY DISEASE 1 SISTER(S) - HEALTHY. SISTER - SEVERE MIGRAINES, KIDNEY STONES. SOCIAL HISTORY GENERAL: TOBACCO USE ARE YOU A:NONSMOKER LATEX QUESTIONNAIRE LATEX ALLERGY : HAVE YOU EVER DEVELOPED ANY TYPE OF REACTION AFTER HANDLING LATEX PRODUCTS SUCH RUBBER GLOVES, CONDOMS, DIAPHRAGMS, BALLOONS, SOCKS, OR UNDERWEAR?NO LATEX ALLERGY : HAVE YOU EVER DEVELOPED ANY TYPE OF REACTION DURING OR AFTER DENTAL APPOINTMENT, VAGINAL/RECTAL EXAMINATION, SURGICAL PROCEDURE, OR ANY OTHER EXPOSURE?NO LATEX RISK : HAVE YOU EVER HAD ANY DIFFICULTY BREATHING OR HIVES AFTER EATING OR HANDLING ANY FRUITS, OR VEGETABLES; SUCH KIWI, BANANAS, STONE FRUITS, OR CHESTNUTSNO LATEX RISK : DO YOU HAVE A PREVIOUS PERSONAL HISTORY OF MORE THAN NINE SURGERIES, SPINA BIFIDA, OR REPEATED CATHERIZATIONS? NO LATEX RISK : ARE YOU FREQUENTLY EXPOSED TO LATEX PRODUCTS IN YOUR OCCUPATION?YES DATE ASKED : 01/18/2020 BMI CARE GOAL FOLLOW-UP ABOVE NORMAL BMI FOLLOW-UPGIVING ENCOURAGEMENT TO EXERCISE ALCOHOL SCREENING DID YOU HAVE A DRINK CONTAINING ALCOHOL IN THE PAST YEAR?NO POINTS0 INTERPRETATIONNEGATIVE RECREATIONAL DRUG USE DRUG USE?NO CAFFEINE CAFFEINE USE?YES SODA 2-3 CANS A DAY SEXUAL HX HAD SEX IN THE LAST 12 MONTHS (VAGINAL, ORAL, OR ANAL)?NO LMP:04/06/2018 HAVE YOU EVER HAD AN STD?NO HIV / HEP-C SCREENING HIV TEST OFFERED TO PATIENT:YES DATE OFFERED:04/27/2018 TEST ACCEPTED:NO HEP-C TEST OFFERED TO PATIENT:NO N/A REASON:PATIENT DECLINED BROCHURE PROVIDED TO PATIENTYES JEW [id number] NONE LANGUAGE LANGUAGES SPOKEN:BURMESE EDUCATION LEVEL OF EDUCATION:FINISHED COLLEGE AD LEARNING BARRIERS / SPECIAL NEEDS CHANGE FROM LAST VISIT?NO BARRIERS TO LEARNING?NO HEARING IMPAIRED?NO VISION IMPAIRED?YES COGNITIVELY IMPAIRED?NO :CORRECTIVE LENSES READINESS TO LEARN?YES LEARNING PREFERENCES?NO LEARNING CAPABILITIES PRESENT?YES EMOTIONAL BARRIERS?NO SPECIAL DEVICES?NO WEIGHT CALLER NEEDED?NO DOMESTIC VIOLENCE NONE. OCCUPATION: UNEMPLOYED. DIET: REGULAR, REDUCED SALT. EXERCISE: NO REGULAR EXERCISE. MARITAL STATUS: SINGLE. NEW PATIENT PAIN DIARY TODAY'S VISITNOTES 01/18/2020 PATIENT DESCRIBES PAIN :HAVE IT ALL THE TIME, SHARP, SHOOTING BILATERAL HIPS HAVE SHARP PAIN SHOOTING PAINS DOWN BILATERAL LEGS FROM 0-10, WHAT LEVEL IS YOUR PAIN TODAY?6 IS THERE A CHANCE YOU COULD BE ?NO HAVE YOU BEEN SICK IN THE LAST WEEK (COLD, COUGH, FEVER, FLU, ETC)NO DO YOU TAKE ANY BLOOD THINNERS?NO DO YOU HAVE ANY RASHES OR OPEN SORES?NO ANY CHANGE IN BOWEL OR BLADDER CONTROL?NO ARE YOU ALLERGIC TO SHELLFISH OR IV DYE?NO ARE YOU DIABETIC?NO DO YOU HAVE A PACEMAKER OR DEFIBRILLATOR?NO ANY NEW PROBLEMS WITH MEDICINES OR NEW ALLERGIESNO ANY NEW PATTERNS OF PAIN OR NUMBNESS?NO ANY CHANGE IN YOUR MEDICAL CONDITION?NO HAVE YOU FALLEN IN THE LAST 6 MONTHS?NO DO YOU USE ANY TYPE OF TOBACCO (SMOKE, SMOKELESS, CHEW, ETC.)NO ARE YOU ABUSED, NEGLECTED, OR IN AN UNSAFE ENVIRONMENT?NO DO YOU HAVE THOUGHTS OF HURTING YOURSELF OR SOMEONE ELSE?NO DO YOU HAVE ANY OTHER QUESTIONS OR CONCERNS?NO INTENSITY SCALE REVIEWEDNUMBER PAIN CLINIC PFS, CLERGY, PUBLIC HEALTH REFERRALS WAS THE PROVIDER NOTIFIED OF ANY PERTINENT INFO?YES HAS THE PATIENT BEEN EDUCATED REGARDING HIS/HER PLAN OF CARE?YES HAS THE PATIENT BEEN EDUCATED REGARDING PAIN, THE RISK FOR PAIN, THE IMPORTANCE OF EFFECTIVE PAIN MANAGEMENT, AND THE PAIN ASSESSMENT PROCESS?YES ADVANCE DIRECTIVE ADVANCE DIRECTIVE DISCUSSED WITH PATIENT:YES PATIENT HAS NO ADVANCED DIRECTIVES AND DECLINES INFORMATION ON HCP AT THIS TIME. PRE-SCREENING COMPLETED FOR PHONE VISIT. PT HAS GIVEN PERSMISSION TO COMPLETE FOLLOWUP VIA PHONE VISIT. 01/18/2020 DS. HOSPITALIZATION/MAJOR DIAGNOSTIC PROCEDURE FORMERLY [facility], [facility] X4 FOR DEPRESSION/DIVORCE OF PARENTS 1997 - 2002 REVIEW OF SYSTEMS REVIEWED BY: PROVIDER: ALICE CUADRA MD . CONSTITUTIONAL: ANY CHANGE IN YOUR MEDICAL CONDITION? NO . CHILLS NO . FEVER NO . INFECTION: DO YOU HAVE NEW INFECTIONS? NO . DO YOU HAVE HISTORY OF MRSA? NO . MUSCULOSKELETAL: ANY NEW PATTERNS OF PAIN OR NUMBNESS? NO . GASTROENTEROLOGY: ANY NEW CHANGE IN BOWEL CONTROL? NO . GENITOURINARY: ANY NEW CHANGE IN BLADDER CONTROL? NO . IS THERE A CHANCE YOU COULD BE ? NO . HEMATOLOGY/LYMPH: DO YOU TAKE ANY BLOOD THINNERS? (FOR EXAMPLE- COUMADIN, PLAVIX, AGGRENOX, PLATEL, PRADAXA, OR XARELTO) NO . WHEN WAS YOUR LAST DOSE? DATE: TIME: . NEUROLOGY: HAVE YOU FALLEN IN THE PAST 12 MONTHS? NO . ANY NEW EXTREMITY NUMBNESS OR WEAKNESS? NO . CARDIOLOGY: DO YOU HAVE A PACEMAKER OR DEFIBRILLATOR? NO . RESPIRATORY: HAVE YOU BEEN SICK IN THE PAST WEEK? NO . FEVER NO . FLU LIKE SYMPTOMS? NO . COUGH NO . INTEGUMENTARY: DO YOU HAVE ANY RASHES OR OPEN SORES? NO . ALLERGIC/IMMUNO: ARE YOU ALLERGIC TO IV DYE? NO . ANY NEW ALLERGIES? NO . PSYCHIATRIC: DO YOU HAVE THOUGHTS OF HURTING YOURSELF OR SOMEONE ELSE? NO . ARE YOU ABUSED, NEGLECTED, OR IN AN UNSAFE ENVIRONMENT? NO . ENDOCRINOLOGY: ARE YOU DIABETIC? NO . OTHER: DO YOU NEED ANY PRESCRIPTIONS? NO . IF YES, PLEASE LIST: ____ . ANY NEW PROBLEMS WITH YOUR MEDICATIONS? PT STATES THAT SHE IS NOT FEELING ANY BENEFIT FROM THE GABAPENTIN MEDICATION AT 100MG, 1 TIME DAILY. PT CONTINUES TO HAVE NUMBNESS IN BOTH LEGS, FROM KNEES ALL THE WAY DOWN TO TOES. DS . WHEN DID YOU LAST EAT? ____ . WHEN DID YOU LAST DRINK? ____ . WHAT DID YOU LAST DRINK? ____ . NAME OF PERSON DRIVING YOU HOME? ____ . DO YOU HAVE ANY OTHER QUESTIONS OR CONCERNS VITAL SIGNS NOT OBTAINED DUE TO PHONE VISIT. DS . EXAMINATION GENERAL EXAMINATION: TELEPHONE VISIT. PATIENT IS ALERT O X 3 AND COOPERATIVE. MRI OF THE LUMBAR SPINE DONE ON 06/07/2019 SHOWS FACET ARTHROPATHY CHANGES. ASSESSMENTS LOW BACK PAIN - M54.5 (PRIMARY) OTHER CHRONIC PAIN - G89.29 SPONDYLOSIS WITHOUT MYELOPATHY OR RADICULOPATHY, LUMBAR REGION - M47.816 TREATMENT LOW BACK PAIN CLINICAL NOTES: WE DISCUSSED SEVERAL ISSUES WITH MS. ROMERO'S PAIN MANAGEMENT CASE. THE PATIENT WILL CONTINUE WITH TIZANIDINE, AND WILL SLOWLY INCREASE THE GABAPENTIN TO AVOID ANY ADVERSE SIDE EFFECTS. I PROVIDED THE PATIENT WITH A SCHEDULE TO START TAKING TWO TABLETS AT NIGHT UNTIL WEDNESDAY, THEN WILL INCREASE TO 3 PER NIGHT. THE PATIENT WILL FOLLOW UP WITH ME NEXT JANUARY 24 TO SEE HOW SHE IS DOING WITH THE INCREASED MEDICATION. THE TOTAL TIME FOR TODAY'S TELEPHONE ENCOUNTER WAS 15 MINUTES. INSTRUCTIONS WERE GIVEN, QUESTIONS WERE ANSWERED, PATIENT REPORTS UNDERSTANDING AND AGREES WITH THE PLAN. I, CHRISS THOMAS, DOCUMENTED THE ABOVE INFORMATION ACTING A SCRIBE FOR DR. CUADRA. I HAVE REVIEWED THE ABOVE DOCUMENT, WRITTEN BY CHRISS ENGLAND AND I VERIFY THAT IT IS ACCURATE.. DISPOSITION & COMMUNICATION FOLLOW UP 1 WEEK (REASON: F/UP WITH DR Aldana ON 01/24 ) ELECTRONICALLY SIGNED BY ALICE CUADRA MD, MD ON 01/23/2020 AT 04:04 PM EDT DISCLAIMER : THIS IS A VISIT SUMMARY EXTRACTED FROM THE [employer] CHART. IT IS NOT A COPY OF THE [facility] PROGRESS NOTE. MTDD
== END ==
LOC: M PAIN 14:30
PROVIDERS: ATTEND Anesthesiology
DX: M54.5 Low back pain (principal); G89.29 Other chronic pain; M47.816 Spondylosis without myelopathy or radiculopathy, lumbar region; J45.909 Unspecified asthma, uncomplicated; Z86.59 Personal history of other mental and behavioral disorders; I10 Essential (primary) hypertension; Z79.899 Other long term (current) drug therapy

== ENCOUNTER → 2020-01-25 | Outpatient (CLI) | payer OTHER ==
--- NOTE | 2020-02-01 00:54 | ECWPNPC ---
PATIENT NAME: BELÉN ROMERO : 1990 GENDER: FEMALE VISIT DATE: 01/25/2020 DISCHARGE DATE: 01/25/20 1216 VISIT LOCKED DATE TIME: PHYSICIAN: ALICE CUADRA MD RESOURCE: ALICE CUADRA MD REASON FOR APPOINTMENT 1. [address] Aldana HISTORY OF PRESENT ILLNESS HISTORY OF PRESENT ILLNESS: PAIN THE PATIENT DESCRIBES THE PAIN... PERMISSION FROM PATIENT WAS RECEIVED TO DO TELEPHONE OFFICE VISIT. 29 YEAR OLD FEMALE PATIENT WITH A HISTORY OF CHRONIC LOW BACK PAIN. THE PATIENT DESCRIBES HER PAIN IT COMES AND GOES, THROBBING, SHOOTING WITH A PAIN SCORE OF 3-8/10 DEPENDING ON PHYSICAL ACTIVITY. THE PATIENT STATES HER PAIN IS IN HER LOWER BACK, BUT SHE ALSO HAS SHOOTING PAIN DOWN BOTH HIPS AND LEGS. THE PATIENT SAYS HER CURRENT MEDICATION REGIMEN IS HELPING AND HER PAIN IS GETTING BETTER. THE PATIENT IS USING 3 TABLETS OF GABAPENTIN 100 MG AT NIGHT AND 1 TIZANIDINE 4 MG AT NIGHT DUE TO IT CAUSING SLEEPINESS AND NO MOTIVATION FOR HER DURING THE DAY. THE PATIENT SAYS SHE IS INTERESTED IN RECEIVING A DIAGNOSTIC LUMBAR FACET BLOCK. THE PATIENT DENIES UNEXPLAINED WEIGHT LOSS, FEVER, CHILLS, NEW CHANGES IN HER URINARY OR BOWEL CONTROL. FALL RISK SCREENING: SCREENING :NO FALLS REPORTED IN THE LAST YEAR CURRENT MEDICATIONS TAKING TYLENOL ARTHRITIS PAIN _ 2 TABLETS ORALLY DAILY NEEDED TAKING IBU-200 200 MG TABLET 1 TABLET WITH FOOD OR MILK NEEDED ORALLY THREE TIMES A DAY TAKING ZYRTEC ALLERGY 10 MG CAPSULE 1 CAPSULE ORALLY ONCE A DAY TAKING METOPROLOL SUCCINATE 50 MG TABLET EXTENDED RELEASE 1 TAB ORALLY DAILY TAKING LOSARTAN POTASSIUM 100 MG TABLET 1 TABLET ORALLY ONCE A DAY TAKING VENTOLIN HFA 108 (90 BASE) MCG/ACT AEROSOL SOLUTION 2 PUFFS NEEDED INHALATION EVERY 6 HRS TAKING ICY HOT 7.5 % (ROLL) MISCELLANEOUS 1 APPLICATION NEEDED EXTERNALLY BID PRN OTC TAKING TIZANIDINE HCL 4 MG TABLET 1 TABLET NEEDED ORALLY FOR SPASMS AND PAIN EVERY 8 HRS MDD 2 TAKING GABAPENTIN 100 MG CAPSULE 1 CAPSULE ORALLY THREE TIMES DAILY MDD3 MEDICATION LIST REVIEWED AND RECONCILED WITH THE PATIENT PAST MEDICAL HISTORY SACRAL DISC HERNIATION - BACK PAIN KIDNEY STONE HEADACHES ENVIRONMENTAL ALLERGIES -PRIOR ALLERGY SHOTS ASTHMA HX OF DEPRESSION A TEEN OBESITY ESSENTIAL HTN ALLERGIES N.K.D.A. SURGICAL HISTORY RIGHT KNEE SURGERY 1999 EPIDERAL INJECTIONS X 3 2015 & 2019 FAMILY HISTORY FATHER: ALIVE 58 YRS, [place] AT 52, KIDNEY STONE, ALCOHOLISM, HTN, PROSTATE CANCER, DIAGNOSED WITH UNSPECIFIED HEART DISEASE, HYPERTENSION, OTHER MALIGNANT NEOPLASM OF UNSPECIFIED SITE MOTHER: ALIVE 55 YRS, S/P GASTRIC BYPASS, THYROID DISEASE (PRE-CANCEROUS), MITRAL VALVE RE-GURG, ASTHMA, HYPERTENSION SIBLINGS: ALIVE, MIGRAINES, KIDNEY STONE PATERNAL GRAND FATHER: , PROSTATE CANCER, MIGRAINES PATERNAL GRAND MOTHER: , DM, KIDNEY DISEASE, DIABETES MATERNAL GRAND FATHER: ALIVE 75 YRS, THYROID DISEASE, HTN, HYPERTENSION MATERNAL GRAND MOTHER: ALIVE 75 YRS, HEMOCHROMATOSIS, HTN, CABG - IN 40'S, KIDNEY DISEASE 1 SISTER(S) - HEALTHY. SISTER - SEVERE MIGRAINES, KIDNEY STONES. SOCIAL HISTORY GENERAL: TOBACCO USE ARE YOU A:NONSMOKER LATEX QUESTIONNAIRE LATEX ALLERGY : HAVE YOU EVER DEVELOPED ANY TYPE OF REACTION AFTER HANDLING LATEX PRODUCTS SUCH RUBBER GLOVES, CONDOMS, DIAPHRAGMS, BALLOONS, SOCKS, OR UNDERWEAR?NO LATEX ALLERGY : HAVE YOU EVER DEVELOPED ANY TYPE OF REACTION DURING OR AFTER DENTAL APPOINTMENT, VAGINAL/RECTAL EXAMINATION, SURGICAL PROCEDURE, OR ANY OTHER EXPOSURE?NO DATE ASKED : 01/18/2020 LATEX RISK : HAVE YOU EVER HAD ANY DIFFICULTY BREATHING OR HIVES AFTER EATING OR HANDLING ANY FRUITS, OR VEGETABLES; SUCH KIWI, BANANAS, STONE FRUITS, OR CHESTNUTSNO LATEX RISK : DO YOU HAVE A PREVIOUS PERSONAL HISTORY OF MORE THAN NINE SURGERIES, SPINA BIFIDA, OR REPEATED CATHERIZATIONS? NO LATEX RISK : ARE YOU FREQUENTLY EXPOSED TO LATEX PRODUCTS IN YOUR OCCUPATION?YES BMI CARE GOAL FOLLOW-UP ABOVE NORMAL BMI FOLLOW-UPGIVING ENCOURAGEMENT TO EXERCISE ALCOHOL SCREENING DID YOU HAVE A DRINK CONTAINING ALCOHOL IN THE PAST YEAR?NO POINTS0 INTERPRETATIONNEGATIVE RECREATIONAL DRUG USE DRUG USE?NO CAFFEINE CAFFEINE USE?YES SODA 2-3 CANS A DAY SEXUAL HX HAD SEX IN THE LAST 12 MONTHS (VAGINAL, ORAL, OR ANAL)?NO LMP:04/06/2018 HAVE YOU EVER HAD AN STD?NO HIV / HEP-C SCREENING HIV TEST OFFERED TO PATIENT:YES DATE OFFERED:04/27/2018 TEST ACCEPTED:NO HEP-C TEST OFFERED TO PATIENT:NO N/A REASON:PATIENT DECLINED BROCHURE PROVIDED TO PATIENTYES CONGREGATIONAL [id number] NONE LANGUAGE LANGUAGES SPOKEN:BANGLADESHI EDUCATION LEVEL OF EDUCATION:FINISHED COLLEGE AD LEARNING BARRIERS / SPECIAL NEEDS CHANGE FROM LAST VISIT?NO BARRIERS TO LEARNING?NO HEARING IMPAIRED?NO VISION IMPAIRED?YES COGNITIVELY IMPAIRED?NO :CORRECTIVE LENSES READINESS TO LEARN?YES LEARNING PREFERENCES?NO LEARNING CAPABILITIES PRESENT?YES EMOTIONAL BARRIERS?NO SPECIAL DEVICES?NO GROUP HOME MANAGER NEEDED?NO DOMESTIC VIOLENCE NONE. OCCUPATION: UNEMPLOYED. DIET: REGULAR, REDUCED SALT. EXERCISE: NO REGULAR EXERCISE. MARITAL STATUS: SINGLE. NEW PATIENT PAIN DIARY TODAY'S VISITNOTES 01/25/2020 PATIENT DESCRIBES PAIN :IT COMES AND GOES, THROBBING, SHOOTING BILATERAL HIPS HAVE SHARP PAIN SHOOTING PAINS DOWN BILATERAL LEGS FROM 0-10, WHAT LEVEL IS YOUR PAIN TODAY?3 PRECIPITATING FACTORS STANDING ALLEVIATING FACTORS SITTING, LAYING DOWN IMPACT ON FUNCTION YES IS THERE A CHANCE YOU COULD BE ?NO HAVE YOU BEEN SICK IN THE LAST WEEK (COLD, COUGH, FEVER, FLU, ETC)NO DO YOU TAKE ANY BLOOD THINNERS?NO DO YOU HAVE ANY RASHES OR OPEN SORES?NO ANY CHANGE IN BOWEL OR BLADDER CONTROL?NO ARE YOU ALLERGIC TO SHELLFISH OR IV DYE?NO ARE YOU DIABETIC?NO DO YOU HAVE A PACEMAKER OR DEFIBRILLATOR?NO ANY NEW PROBLEMS WITH MEDICINES OR NEW ALLERGIESNO ANY NEW PATTERNS OF PAIN OR NUMBNESS?NO ANY CHANGE IN YOUR MEDICAL CONDITION?NO HAVE YOU FALLEN IN THE LAST 6 MONTHS?NO DO YOU USE ANY TYPE OF TOBACCO (SMOKE, SMOKELESS, CHEW, ETC.)NO ARE YOU ABUSED, NEGLECTED, OR IN AN UNSAFE ENVIRONMENT?NO DO YOU HAVE THOUGHTS OF HURTING YOURSELF OR SOMEONE ELSE?NO DO YOU HAVE ANY OTHER QUESTIONS OR CONCERNS?NO INTENSITY SCALE REVIEWEDNUMBER PAIN CLINIC PFS, CLERGY, PUBLIC HEALTH REFERRALS WAS THE PROVIDER NOTIFIED OF ANY PERTINENT INFO?YES HAS THE PATIENT BEEN EDUCATED REGARDING HIS/HER PLAN OF CARE?YES HAS THE PATIENT BEEN EDUCATED REGARDING PAIN, THE RISK FOR PAIN, THE IMPORTANCE OF EFFECTIVE PAIN MANAGEMENT, AND THE PAIN ASSESSMENT PROCESS?YES ADVANCE DIRECTIVE ADVANCE DIRECTIVE DISCUSSED WITH PATIENT:YES PATIENT HAS NO ADVANCED DIRECTIVES AND DECLINES INFORMATION ON HCP AT THIS TIME. PRE-SCREENING COMPLETED FOR PHONE VISIT. PT HAS GIVEN PERSMISSION TO COMPLETE FOLLOWUP VIA PHONE VISIT. 01/18/2020 DS. HOSPITALIZATION/MAJOR DIAGNOSTIC PROCEDURE [facility] X4 FOR DEPRESSION/DIVORCE OF PARENTS 1997 - 2002 REVIEW OF SYSTEMS REVIEWED BY: PROVIDER: ALICE CUADRA MD . CONSTITUTIONAL: ANY CHANGE IN YOUR MEDICAL CONDITION? PAIN IS GETTING BETTER . CHILLS NO . FEVER NO . INFECTION: DO YOU HAVE NEW INFECTIONS? NO . DO YOU HAVE HISTORY OF MRSA? NO . MUSCULOSKELETAL: ANY NEW PATTERNS OF PAIN OR NUMBNESS? PAIN IS BETTER . GASTROENTEROLOGY: ANY NEW CHANGE IN BOWEL CONTROL? NO . GENITOURINARY: ANY NEW CHANGE IN BLADDER CONTROL? NO . IS THERE A CHANCE YOU COULD BE ? NO . HEMATOLOGY/LYMPH: DO YOU TAKE ANY BLOOD THINNERS? (FOR EXAMPLE- COUMADIN, PLAVIX, AGGRENOX, PLATEL, PRADAXA, OR XARELTO) NO . WHEN WAS YOUR LAST DOSE? DATE: TIME: . NEUROLOGY: HAVE YOU FALLEN IN THE PAST 12 MONTHS? NO . ANY NEW EXTREMITY NUMBNESS OR WEAKNESS? NO . CARDIOLOGY: DO YOU HAVE A PACEMAKER OR DEFIBRILLATOR? NO . RESPIRATORY: HAVE YOU BEEN SICK IN THE PAST WEEK? NO . FEVER NO . FLU LIKE SYMPTOMS? NO . COUGH NO . INTEGUMENTARY: DO YOU HAVE ANY RASHES OR OPEN SORES? NO . ALLERGIC/IMMUNO: ARE YOU ALLERGIC TO IV DYE? NO . ANY NEW ALLERGIES? NO . PSYCHIATRIC: DO YOU HAVE THOUGHTS OF HURTING YOURSELF OR SOMEONE ELSE? NO . ARE YOU ABUSED, NEGLECTED, OR IN AN UNSAFE ENVIRONMENT? NO . ENDOCRINOLOGY: ARE YOU DIABETIC? NO . OTHER: DO YOU NEED ANY PRESCRIPTIONS? NO . IF YES, PLEASE LIST: ____ . ANY NEW PROBLEMS WITH YOUR MEDICATIONS? NO . WHEN DID YOU LAST EAT? ____ . WHEN DID YOU LAST DRINK? ____ . WHAT DID YOU LAST DRINK? ____ . NAME OF PERSON DRIVING YOU HOME? ____ . DO YOU HAVE ANY OTHER QUESTIONS OR CONCERNS NO . EXAMINATION GENERAL EXAMINATION: TELEPHONE ENCOUNTER. PATIENT IS ALERT O X 3 AND COOPERATIVE. MRI OF THE LUMBAR SPINE DONE ON 06/07/2019 SHOWS FACET ARTHROPATHY CHANGES. ASSESSMENTS SPONDYLOSIS WITHOUT MYELOPATHY OR RADICULOPATHY, LUMBAR REGION - M47.816 (PRIMARY) LOW BACK PAIN - M54.5 OTHER CHRONIC PAIN - G89.29 TREATMENT SPONDYLOSIS WITHOUT MYELOPATHY OR RADICULOPATHY, LUMBAR REGION CLINICAL NOTES: WE DISCUSSED SEVERAL ISSUES WITH MS. ROMERO'S PAIN MANAGEMENT CASE. THE PATIENT EXPRESSED SHE WOULD LIKE TO MOVE FORWARD WITH A DIAGNOSTIC FACET BLOCK. DUE TO THE LUMBAR SPONDYLOSIS, I WOULD LIKE TO REQUEST FOR A DIAGNOSTIC LUMBAR FACET BLOCK TO CONSIDER RADIOFREQUENCY. WE DISCUSSED THE BENEFITS, RISKS, AND ALTERNATIVES OF THE PROCEDURE AND THE PATIENT WOULD LIKE TO PROCEED. WE DISCUSSED THE CONCERNS OF STEROIDS POTENTIALLY CAUSING IMMUNOSUPPRESSION SHORT-TERM AND FURTHER COMPLICATIONS IF THEY COME IN CONTACT WITH COVID-19. THE PATIENT UNDERSTANDS, WOULD LIKE TO PROCEED WITH THE PROCEDURE, AND AGREES SHE WILL BE CAREFUL BY SELF ISOLATING FOR A WEEK OR MORE. THE PATIENT WILL FOLLOW UP IN SEVERAL WEEKS TO SEE IF SHE RECEIVED GOOD RESULTS FROM THE BLOCK. I AM INCREASING THE PATIENT'S GABAPENTIN FROM 100 MG TO 300 MG, 90 TABLETS FOR THE MONTH, TO BE USED 3 TIMES DAILY. I PROVIDED A SCHEDULE FOR THE PATIENT TO SLOWLY INCREASE THE MEDICATION TO AVOID ANY ADVERSE SIDE EFFECTS. THE PATIENT WILL CONTINUE WITH TIZANIDINE, AND I ADVISED HER TO TRY CUTTING THE 4 MG TABLET IN HALF TO TAKE ONE HALF DURING THE DAY TO SEE IF IT HELPS WITH HER PAIN AND AVOID SLEEPINESS. THE TOTAL TIME FOR TODAY'S TELEPHONE VISIT WAS 14 MINUTES. INSTRUCTIONS WERE GIVEN, QUESTIONS WERE ANSWERED, PATIENT REPORTS UNDERSTANDING AND AGREES WITH THE PLAN. I, CHRISS THOMAS, DOCUMENTED THE ABOVE INFORMATION ACTING A SCRIBE FOR DR. CUADRA. I HAVE REVIEWED THE ABOVE DOCUMENT, WRITTEN BY CHRISS THOMAS SCRIBRosie AND I VERIFY THAT IT IS ACCURATE. . OTHERS CONTINUE GABAPENTIN CAPSULE, 300 MG, 1 CAPSULE, ORALLY, THREE TIMES DAILY MDD3, 30 DAYS, 90, REFILLS 0 DISPOSITION & COMMUNICATION FOLLOW UP 1 WEEK (REASON: JEM L4-L5, L5-S1 DFB #1) ELECTRONICALLY SIGNED BY ALICE CUADRA MD, ON 01/31/2020 AT 12:08 PM EDT DISCLAIMER : THIS IS A VISIT SUMMARY EXTRACTED FROM THE [employer] CHART. IT IS NOT A COPY OF THE [employer] PROGRESS NOTE. MTDD
== END ==
LOC: M PAIN 10:45
PROVIDERS: ATTEND Anesthesiology
DX: M47.816 Spondylosis without myelopathy or radiculopathy, lumbar region (principal); M54.5 Low back pain; G89.29 Other chronic pain; J45.909 Unspecified asthma, uncomplicated; Z86.59 Personal history of other mental and behavioral disorders; I10 Essential (primary) hypertension; Z79.899 Other long term (current) drug therapy

== ENCOUNTER → 2020-05-28 | Outpatient (CLI) | payer OTHER ==
--- NOTE | 2020-07-01 08:33 | REP ---
LEFT FOOT SERIES: HISTORY: Left foot pain. TECHNIQUE: AP, lateral, bilateral oblique views of the left foot. FINDINGS: The osseous structures, joint spaces and surrounding soft tissues are normal and age appropriate. No acute fracture or dislocation. No overt arthritic findings. No subcutaneous emphysema or foreign body. IMPRESSION: Essentially normal age appropriate left foot radiograph series. MTDD
--- NOTE | 2020-07-01 08:34 | REP ---
LEFTANKLE SERIES: CLINICAL HISTORY: Pain. TECHNIQUE: AP, lateral, bilateral oblique views of the left ankle. FINDINGS: No evidence for acute fracture or dislocation. Joint spaces and ankle mortise appear relatively age appropriate. No overt arthritic findings. No calcaneal heel spur. No foreign body. IMPRESSION: Generalized age related changes. No acute fracture or dislocation. [facility]
== END ==
LOC: M WUC 09:47
PROVIDERS: ATTEND Nurse Practitioner Family
DX: M25.572 Pain in left ankle and joints of left foot (principal)

== ENCOUNTER → 2020-08-22 | Outpatient (CLI) | payer OTHER ==
[2020-08-22 10:31] LABS: HEMATOCRIT 41.5 % (36.0-47.0); HEMOGLOBIN 12.8 g/dl (12.0-15.5); MEAN CORPUSCULAR HEMOGLOBIN 27.3 pg (27.0-33.0); MEAN CORPUSCULAR HGB CONC 30.8 g/dl (32.0-36.5); MEAN CORPUSCULAR VOLUME 88.5 fl (80.0-96.0); PLATELET COUNT, AUTOMATED 324 10^3/uL (150-450); RED BLOOD COUNT 4.69 10^6/uL (4.00-5.40); WHITE BLOOD COUNT 9.8 10^3/uL (4.0-10.0)
[2020-08-22 11:02] LABS: BLOOD UREA NITROGEN 7 MG/DL (7-18); CALCIUM LEVEL 8.5 MG/DL (8.5-10.1); CARBON DIOXIDE LEVEL 27 MEQ/L (21-32); CHLORIDE LEVEL 108 MEQ/L (98-107); CREATININE FOR GFR 0.55 MG/DL (0.55-1.30); GLOMERULAR FILTRATION RATE > 60.0 (>60); GLUCOSE, FASTING 81 MG/DL (70-100); POTASSIUM SERUM 4.1 MEQ/L (3.5-5.1); SODIUM LEVEL 139 MEQ/L (136-145)
== END ==
LOC: M LAB 09:29
PROVIDERS: ATTEND Physician Assistant
DX: I10 Essential (primary) hypertension (principal)

== ENCOUNTER → 2020-09-19 | Outpatient (CLI) | payer OTHER ==
--- NOTE | 2020-09-19 09:35 | REP ---
INDICATION: PAIN. Multiple inversion injuries. COMPARISON: Comparison left ankle radiographs are from May 28, 2020.. TECHNIQUE: Four views. FINDINGS: Four views of the left ankle demonstrate an intact ankle mortise. 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 A large os trigonum is seen at the posterior aspect of the talus. This measures 16 mm in size. This may be associated with posterior ankle impingement. No fracture or subluxation is seen. Achilles tendon silhouette is smooth. IMPRESSION: Mild tibiotalar spurring. Large os trigonum as discussed above. No fracture or other acute bony abnormality. <Electronically signed by Dash Shields > 09/19/20 0975
== END ==
LOC: M WUC 09:16
PROVIDERS: ATTEND Nurse Practitioner Family
DX: M25.772 Osteophyte, left ankle (principal)

== ENCOUNTER → 2020-10-07 | Outpatient (CLI) | payer SELFPAY | LOC: M LABSMTC 11:34 | PROVIDERS: ATTEND Pediatrics | DX: Z20.828 Contact with and (suspected) exposure to other viral communicable diseases (principal) ==

== ENCOUNTER → 2020-11-25 | Outpatient (CLI) | payer SELFPAY | LOC: M LABSMTC 09:53 | PROVIDERS: ATTEND Pediatrics | DX: Z20.822 Contact with and (suspected) exposure to COVID-19 (principal) ==

== ENCOUNTER → 2021-08-26 | Outpatient (CLI) | payer OTHER ==
[2021-08-26 10:12] LABS: BASO % 0.5 % (0.0-1.0); EOS # 0.3 10^3/uL (0.0-0.5); EOS % 3.7 % (0.0-3.0); HEMATOCRIT 41.5 % (36.0-47.0); HEMOGLOBIN 13.3 g/dl (12.0-15.5); LYMPH # 2.6 10^3/uL (1.5-5.0); LYMPH % 30.8 % (24.0-44.0); MEAN CORPUSCULAR HEMOGLOBIN 28.1 pg (27.0-33.0); MEAN CORPUSCULAR VOLUME 87.7 fl (80.0-96.0); MONO # 0.6 10^3/uL (0.0-0.8); MONO % 7.6 % (2.0-8.0); NEUTROPHILS # 4.7 10^3/uL (1.5-8.5); NEUTROPHILS % 56.9 % (36.0-66.0); PLATELET COUNT, AUTOMATED 324 10^3/uL (150-450); RED BLOOD COUNT 4.73 10^6/uL (4.00-5.40); WHITE BLOOD COUNT 8.3 10^3/uL (4.0-10.0)
[2021-08-26 11:02] LABS: ALBUMIN 3.8 GM/DL (3.2-5.2); ALT/SGPT 35 U/L (12-78); BILIRUBIN,TOTAL 0.6 MG/DL (0.2-1.0); BLOOD UREA NITROGEN 7 MG/DL (7-18); CALCIUM LEVEL 8.7 MG/DL (8.5-10.1); CARBON DIOXIDE LEVEL 26 MEQ/L (21-32); CHLORIDE LEVEL 106 MEQ/L (98-107); CHOLESTEROL LEVEL 180 MG/DL (<200); CHOLESTEROL RISK RATIO 4.615 (<5); CREATININE FOR GFR 0.67 MG/DL (0.55-1.30); GLOMERULAR FILTRATION RATE > 60.0 (>60); GLUCOSE, FASTING 94 MG/DL (70-100); HDL CHOLESTEROL 39 MG/DL (>40); LDL CHOLESTEROL 117 MG/DL (<100); NON-HDL-C 141 MG/DL; POTASSIUM SERUM 4.2 MEQ/L (3.5-5.1); SODIUM LEVEL 138 MEQ/L (136-145); TOTAL PROTEIN 7.2 GM/DL (6.4-8.2); TRIGLYCERIDES LEVEL 119 MG/DL (<150)
== END ==
LOC: M LAB 09:26
PROVIDERS: ATTEND Physician Assistant
DX: I10 Essential (primary) hypertension (principal); Z13.220 Encounter for screening for lipoid disorders

== ENCOUNTER 2021-09-14 11:46 | Emergency (ER) | payer OTHER ==
[~2021-09-14] VITALS: Ht 157.5 cm; Wt 147.7 kg
[~2021-09-14 11:46] MED LIST changes: -CEFD1CAP8 PO; +CEFD300C41 PO
[2021-09-14] MEDS ORDERED: NITROGLYCERIN 0.4 MG SUBL TABLET SL PRN (12:25)
[2021-09-14 12:41] LABS: BASO # 0.1 10^3/uL (0.0-0.2); BASO % 0.5 % (0.0-1.0); EOS # 0.2 10^3/uL (0.0-0.5); EOS % 2.2 % (0.0-3.0); HEMATOCRIT 41.2 % (36.0-47.0); HEMOGLOBIN 13.3 g/dl (12.0-15.5); LYMPH # 2.2 10^3/uL (1.5-5.0); LYMPH % 21.2 % (24.0-44.0); MEAN CORPUSCULAR HEMOGLOBIN 28.2 pg (27.0-33.0); MEAN CORPUSCULAR HGB CONC 32.3 g/dl (32.0-36.5); MEAN CORPUSCULAR VOLUME 87.3 fl (80.0-96.0); MONO # 0.8 10^3/uL (0.0-0.8); MONO % 8.1 % (2.0-8.0); NEUTROPHILS % 67.7 % (36.0-66.0); PLATELET COUNT, AUTOMATED 302 10^3/uL (150-450); RED BLOOD COUNT 4.72 10^6/uL (4.00-5.40); WHITE BLOOD COUNT 10.3 10^3/uL (4.0-10.0)
[2021-09-14 13:14] LABS: ALBUMIN 3.7 GM/DL (3.2-5.2); ALT/SGPT 28 U/L (12-78); BILIRUBIN,DIRECT 0.2 MG/DL (0.0-0.2); BILIRUBIN,TOTAL 0.6 MG/DL (0.2-1.0); BLOOD UREA NITROGEN 8 MG/DL (7-18); CALCIUM LEVEL 8.7 MG/DL (8.5-10.1); CARBON DIOXIDE LEVEL 25 MEQ/L (21-32); CHLORIDE LEVEL 110 MEQ/L (98-107); CREATININE FOR GFR 0.71 MG/DL (0.55-1.30); GLOMERULAR FILTRATION RATE > 60.0 (>60); GLUCOSE, FASTING 105 MG/DL (70-100); LIPASE 75 U/L (73-393); POTASSIUM SERUM 4.2 MEQ/L (3.5-5.1); SODIUM LEVEL 141 MEQ/L (136-145); TOTAL PROTEIN 7.3 GM/DL (6.4-8.2)
[2021-09-14 13:15] VITALS: BP 156/83
[2021-09-14 13:15] LABS: MB/CK RELATIVE INDEX 0.88 (< OR =4)
[2021-09-14] MEDS ORDERED: ACETAMINOPHEN TAB 650MG DOSE (2X325MG) PO ONE (13:25)
[2021-09-14 14:10] LABS: CK-MB VALUE MASS 1.1 NG/ML (<3.6); CPK CREATINE PHOSPHOKINASE 97 U/L (26-192); MB/CK RELATIVE INDEX 1.13 (< OR =4)
[2021-09-14 15:45] VITALS: BP 149/83
== END 2021-09-14 16:17 | disposition home or self-care (01) ==
LOC: M ED 11:46 → EDBD 11:46 → M ED 16:17
DX: R07.9 Chest pain, unspecified (principal); R06.02 Shortness of breath; I10 Essential (primary) hypertension; J45.909 Unspecified asthma, uncomplicated; E78.5 Hyperlipidemia, unspecified; Z79.899 Other long term (current) drug therapy

== ENCOUNTER → 2021-12-24 | Outpatient (CLI) | payer OTHER ==
[2021-12-24 11:41] LABS: BLOOD UREA NITROGEN 12 MG/DL (7-18); CALCIUM LEVEL 8.4 MG/DL (8.5-10.1); CARBON DIOXIDE LEVEL 28 MEQ/L (21-32); CHLORIDE LEVEL 109 MEQ/L (98-107); CREATININE FOR GFR 0.61 MG/DL (0.55-1.30); GLOMERULAR FILTRATION RATE > 60.0 (>60); GLUCOSE, FASTING 85 MG/DL (70-100); POTASSIUM SERUM 4.8 MEQ/L (3.5-5.1); SODIUM LEVEL 139 MEQ/L (136-145)
== END ==
LOC: M LAB 09:43
PROVIDERS: ATTEND Student in an Organized Health Care Education/Training Program
DX: M25.571 Pain in right ankle and joints of right foot (principal)

== ENCOUNTER 2022-02-20 11:19 | Emergency (ER) | payer OTHER ==
[~2022-02-20] VITALS: Ht 157.5 cm; Wt 145.4 kg
[2022-02-20 11:19] VITALS: BP 157/98
[2022-02-20] MEDS ORDERED: FLUO10CA18 (12:01)
[2022-02-20] MEDS ORDERED: METO1TAB7 (12:01)
[2022-02-20] MEDS ORDERED: ATOR1TAB19 (12:01)
[2022-02-20] MEDS ORDERED: ALBU8.5H (12:01)
[2022-02-20] MEDS ORDERED: BUSP1TAB (12:01)
[2022-02-20] MEDS ORDERED: IBUP-1022 PO (12:01)
[2022-02-20] MEDS ORDERED: LOSA100T45 (12:01)
[2022-02-20] MEDS ORDERED: ALBU83IN NEB (13:58)
[2022-02-20] MEDS ORDERED: PRED20TA PO (15:11)
== END 2022-02-20 15:27 | disposition home or self-care (01) ==
LOC: M ED 11:19
DX: R05.9 Cough, unspecified (principal); Z20.822 Contact with and (suspected) exposure to COVID-19; J45.909 Unspecified asthma, uncomplicated; Z79.899 Other long term (current) drug therapy

== ENCOUNTER 2022-06-01 15:54 | Emergency (ER) | payer OTHER ==
[~2022-06-01] VITALS: Ht 157.5 cm; Wt 145.4 kg
[2022-06-01 15:54] VITALS: BP 131/73
[~2022-06-01 15:54] MED LIST changes: +ALBU2.5V10 NEB; +ALBU8.5H; +ATOR1TAB19; +BUSP1TAB; +FLUO10CA18; +IBUP-1022 PO; +LOSA100T45; +METO1TAB7; +PRED20TA PO
[2022-06-01] MEDS ORDERED: KETOROLAC 30 MG/ML 1ML VIAL IM ONE (18:05)
== END 2022-06-01 19:49 | disposition home or self-care (01) ==
LOC: M ED 15:54
DX: G89.29 Other chronic pain (principal); M54.50 Low back pain, unspecified; M43.06 Spondylolysis, lumbar region; M99.83 Other biomechanical lesions of lumbar region; I10 Essential (primary) hypertension; F32.A Depression, unspecified; F41.9 Anxiety disorder, unspecified; Z79.899 Other long term (current) drug therapy
CPT/HCPCS: 70450; 72125; 72128; 72131; 96372; 99282; J1885

== ENCOUNTER 2022-07-29 13:40 | Outpatient (RCR) | payer OTHER | END 2022-08-03 | LOC: M PT 13:40 | PROVIDERS: ATTEND Student in an Organized Health Care Education/Training Program | DX: M54.50 Low back pain, unspecified (principal) ==

== ENCOUNTER → 2022-09-17 | Outpatient (REF) | payer OTHER ==
[2022-09-17 18:51] LABS: RSV AMPLIFICATION POSITIVE (NEGATIVE)
== END ==
LOC: M SFHCPLAZ 16:54
PROVIDERS: ATTEND Physician Assistant
DX: R05.1 Acute cough (principal)

== ENCOUNTER 2022-11-11 08:44 | Emergency (ER) | payer OTHER ==
[~2022-11-11] VITALS: Ht 157.5 cm; Wt 143.2 kg
[2022-11-11] MEDS ORDERED: KETOROLAC 60MG 2ML VIAL IM ONE (11:55)
[2022-11-11] MEDS ORDERED: ACETAMINOPHEN 500 MG TAB PO ONE (11:55)
[2022-11-11] MEDS ORDERED: diazePAM 5MG TABLET PO ONE (11:55)
[2022-11-11] MEDS ORDERED: LIDOCAINE 5% (LIDODERM) PATCH TD ONE (11:55)
[2022-11-11] MEDS ORDERED: VALI5TAB PO (13:34)
[2022-11-11] MEDS ORDERED: LIDO5DIS41 TOP (13:34)
[2022-11-11 13:45] VITALS: BP 123/70
== END 2022-11-11 13:55 | disposition home or self-care (01) ==
LOC: M ED 08:44
DX: M51.26 Other intervertebral disc displacement, lumbar region (principal); M43.16 Spondylolisthesis, lumbar region; I10 Essential (primary) hypertension; J45.909 Unspecified asthma, uncomplicated; E78.00 Pure hypercholesterolemia, unspecified; Z79.899 Other long term (current) drug therapy
CPT/HCPCS: 72131; 96372; 99283; J1885

== ENCOUNTER 2023-01-25 16:00 | Outpatient (RCR) | payer OTHER ==
[~2023-01-25 16:00] MED LIST changes: +LIDO5DIS41 TOP; +VALI5TAB PO
== END 2023-01-31 ==
LOC: M PT 16:00
PROVIDERS: ATTEND Dentist Endodontics
DX: M43.16 Spondylolisthesis, lumbar region (principal); M47.26 Other spondylosis with radiculopathy, lumbar region; M51.36 Other intervertebral disc degeneration, lumbar region

== ENCOUNTER → 2023-02-26 | Outpatient (CLI) | payer OTHER ==
[~2023-02-26] MED LIST changes: -LOSA100T45; +LOSA100T46
== END ==
LOC: M PLAIMG 13:29
PROVIDERS: ATTEND Pain Medicine Interventional Pain Medicine
DX: M54.16 Radiculopathy, lumbar region (principal)

== ENCOUNTER → 2023-10-14 | Outpatient (REF) | payer OTHER ==
[~2023-10-14] MED LIST changes: +CEFD1CAP9 PO; -CEFD300C41 PO
== END ==
LOC: M SFHCWAGY 15:38
PROVIDERS: ATTEND Nurse Practitioner Family
DX: Z12.4 Encounter for screening for malignant neoplasm of cervix (principal)

== ENCOUNTER → 2024-05-16 | Outpatient (CLI) | payer OTHER ==
[~2024-05-16] MED LIST changes: +FLUO-290; -FLUO10CA18
== END ==
LOC: M LAB 12:09
PROVIDERS: ATTEND Student in an Organized Health Care Education/Training Program
DX: M25.521 Pain in right elbow (principal)

== ENCOUNTER → 2024-07-31 | Outpatient (CLI) | payer OTHER ==
[2024-07-31 17:56] LABS: CHOLESTEROL RISK RATIO 4.67 (<5); HDL CHOLESTEROL 37.9 MG/DL (>40); LDL CHOLESTEROL 73.1 MG/DL (<100); NON-HDL-C 139.1 MG/DL
[2024-07-31 18:52] LABS: HEMOGLOBIN A1c 5.4 % (4.0-6.0)
== END ==
LOC: M PLALAB 14:17
PROVIDERS: ATTEND Student in an Organized Health Care Education/Training Program
DX: Z00.00 Encounter for general adult medical examination without abnormal findings (principal)